=== PATIENT | female | born 1965 | race Caucasian/White ===

== ENCOUNTER → 2021-04-08 | Outpatient (CLI) | payer BC ==
[~2021-04-08] MED LIST: ALPRAZOLAM0.5 MG PO; NAPROSYN500 MG PO; PERCOCET 5/325 T1 EA GT; STELARA45 MG/0.5 SQ; SUBOXONE 8 MG-1 EACH SL; ZYRTEC10 M3 PO; ZYRTEC10 MG PO
== END ==
LOC: KOH-I 04-05 11:00
DX: Z12.2 Encounter for screening for malignant neoplasm of respiratory organs (principal); F17.210 Nicotine dependence, cigarettes, uncomplicated; R91.8 Other nonspecific abnormal finding of lung field; I25.10 Atherosclerotic heart disease of native coronary artery without angina pectoris
CPT/HCPCS: 71271